=== PATIENT | female | born 1980 | race Two or more races ===

== ENCOUNTER 2020-07-13 18:38 | Emergency (ER) | payer BC ==
[~2020-07-13] VITALS: Ht 160 cm; Wt 65.4 kg
[2020-07-13 19:22] LABS: BILIRUBIN,URINE NEGATIVE (NEG); CLARITY,URINE CLEAR; NITRITE,URINE NEGATIVE (NEG); PROTEIN,URINE NEGATIVE (NEG-TRACE); UROBILINOGEN,URINE 0.2 mg/dL (0.2 mg/dL)
--- NOTE | 2020-07-13 19:25 | PHYS DOC ---
General Adult EDM: Chief Complaint: VAGINAL PROBLEM HPI: HPI: Patient is a 40 year old female who presents with on June 14 she went down to the [place] and was wearing a pad. She then began getting very itchy vaginally and she would burning when she would urinate. She states that on June 18 she went to an urgent care that gave her Bactrim antibiotic and metronidazole cream. She states the metronidazole cream helped for a little while but her symptoms came back. Patient states that they also did a urinalysis but it was all negative. She states today she has started spotting and is having very mild cramps. She states she has had some white to yellow discharge but there is no smell to it. Patient denies concern for sexually transmitted diseases. Patient denies abdominal pain, nausea, vomiting, diarrhea, fever, blood in her urine, diarrhea, constipation, back pain, dysuria symptoms. Review of Systems: Review of Systems: Constitutional: Denies fever or chills. [] Eyes: Denies change in visual acuity. [] HENT: Denies nasal congestion or sore throat. [] Respiratory: Denies cough or shortness of breath. [] Cardiovascular: Denies chest pain or edema. [] GI: +Low mid cramping abdominal pain, denies nausea, vomiting, bloody stools or diarrhea. [] : + dysuria. White and yellow discharge and itching. [] Musculoskeletal: Denies back pain or joint pain. [] Integument: Denies rash. Excoriation to external vagina and vaginal canal. [] Neurologic: Denies headache, focal weakness or sensory changes. [] Endocrine: Denies polyuria or polydipsia. [] Lymphatic: Denies swollen glands. [] Psychiatric: Denies depression or anxiety. [] Heart Score: Risk Factors: Risk Factors: DM, Current or recent (<one month) smoker, HTN, HLP, family history of CAD, obesity. Risk Scores: Score 0 - 3: 2.5% MACE over next 6 weeks - Discharge Home Score 4 - 6: 20.3% MACE over next 6 weeks - Admit for Clinical Observation Score 7 - 10: 72.7% MACE over next 6 weeks - Early Invasive Strategies Physical Exam: PE: Constitutional: Well developed, well nourished, no acute distress, non-toxic appearance. [] HENT: Normocephalic, atraumatic, bilateral external ears normal, oropharynx moist, no oral exudates, nose normal. [] Eyes: PERRLA, EOMI, conjunctiva normal, no discharge. [] Neck: Normal range of motion, no tenderness, supple, no stridor. [] Cardiovascular:Heart rate regular rhythm, no murmur [] Lungs & Thorax: Bilateral breath sounds clear to auscultation [] Abdomen: Bowel sounds normal, soft, no tenderness, no masses, no pulsatile masses. [] Skin: Warm, dry, no erythema, no rash. External vagina white discharge and tenderness or excoriation [] Back: No tenderness, no CVA tenderness. [] Extremities: No tenderness, no cyanosis, no clubbing, ROM intact, no edema. [] Neurologic: Alert and oriented X 3, normal motor function, normal sensory function, no focal deficits noted. [] Psychologic: Affect normal, judgement normal, mood normal. [] Current Patient Data: Labs: Laboratory Tests Test 07/13/20 19:11 POC Urine HCG, Qualitative Hcg negative (Negative) EKG: EKG: [] Radiology/Procedures: Radiology/Procedures: [] Course & Med Decision Making: Course & Med Decision Making Pertinent Labs and Imaging studies reviewed. (See chart for details) See HPI. Alert and oriented x4. Patient is [place]-speaking but her son is interpreting for her. Speaks in full complete sentences. Skin pink warm and dry. Ambulatory with a steady gait. Pelvic Exam: Wallpaper Scraper present Abdomen: Nontender External Genitalia: Reddened with white discharge and tender with touch Speculum: Normal vaginal mucosa tender with exam, White/ yellow cervical discharge Bimanual: No adnexal masses or tenderness, No CMT [] Patient positive for yeast and bacterial vaginosis and a urinary tract infection. She will be treated with antibiotic and antifungals. Patient follow-up with her primary care provider. Librado Disclaimer: Librado Disclaimer: This electronic medical record was generated, in whole or in part, using a voice recognition dictation system. Departure Departure Impression: Primary Impression: Yeast infection involving the vagina and surrounding area Additional Impressions: Bacterial vaginosis UTI (urinary tract infection) Qualified Codes: N39.0 - Urinary tract infection, site not specified Disposition: HOME, SELF-CARE Condition: STABLE Referrals: JOSE SÁNCHEZ Jr, MD Patient Instructions: Bacterial Vaginosis, Urinary Tract Infection, Yeast Infection of the Skin, [id number] Additional Instructions: Follow-up with a cpas. Use medications as prescribed. Drink plenty of fluids. Take medication with food and do not drink any alcohol with this medication as it can make you vomit. Scripts Miconazole Nitrate (MONISTAT 3) 24 Gm Cmb.pf.crm 1 APPFUL VG QHS for 3 Days, #24 GM 0 Refills Prov: SRINATH ELIAS APRN 07/13/20 Cephalexin (KEFLEX) 500 Mg Capsule 1 CAP PO BID for 10 Days, #20 CAP 0 Refills Prov: SRINATH ELIAS APRN 07/13/20 Metronidazole (METRONIDAZOLE) 500 Mg Tablet 1 TAB PO BID for 7 Days, #14 TAB 0 Refills Prov: SRINATH ELIAS APRN 07/13/20 Justicifation of Admission Dx: Justifications for Admission: Justification of Admission Dx: N/A SRINATH ELIAS APRN Jul 13, 2020 19:25
[2020-07-13 19:28] LABS: COLOR,URINE STRAW; SQUAMOUS EPITHELIAL CELL,UR MANY /LPF
[2020-07-13 19:29] LABS: BACTERIA,URINE MANY /HPF (0-FEW); WBC,URINE >40 /HPF (0-4)
[2020-07-13 19:30] LABS: YEAST,URINE PRESENT /HPF
[2020-07-13] MEDS ORDERED: MICO24CM5 VG (19:42)
[2020-07-13] MEDS ORDERED: CEPH-264 PO (19:42)
[2020-07-13] MEDS ORDERED: METR-34 PO (19:42)
[2020-07-13] MEDS ORDERED: cefTRIAXone IM 1 GM VIAL IM ONE (19:45)
[2020-07-13 20:16] VITALS: BP 109/80
== END 2020-07-13 20:26 | disposition home or self-care (01) ==
LOC: ER 18:38
DX: B37.3 Candidiasis of vulva and vagina (principal); N76.0 Acute vaginitis; B96.89 Other specified bacterial agents as the cause of diseases classified elsewhere; N39.0 Urinary tract infection, site not specified
CPT/HCPCS: 81001; 81025; 87086; 87491; 87591; 96372; 99284; J0696; Q0111

== ENCOUNTER 2020-07-18 09:34 | Emergency (ER) | payer BC ==
[~2020-07-18] VITALS: Ht 160 cm; Wt 63.6 kg
[~2020-07-18 09:34] MED LIST: CEPH-264 PO; METR-34 PO; MICO24CM5 VG
--- NOTE | 2020-07-18 09:57 | PHYS DOC ---
Past Medical History Past Medical History: No Pertinent History Past Surgical History: Smoking Status: Never Smoker Alcohol Use: None General Adult EDM: Chief Complaint: SKIN RASH/ABSCESS HPI: HPI: Healthy 40-year-old female who presents for evaluation of pruritus and skin burning sensation that began a couple days ago. She believes she may be allergic to one of the medications prescribed to her on Thursday when she was seen for UTI, BV, yeast infection (Keflex, Flagyl, miconazole). Also reports some mild anterior nonradiating chest pressure, and mild dyspnea, as well as some anxiety. Review of Systems: Review of Systems: Gen: No fever, chills. Eyes: No blurred vision, diplopia. ENT: No nasal congestion, sore throat. CV: No palpitations. Reports chest pressure. Resp. No SOB, cough. GI: No abd pain, N/V. : No dysuria, hematuria. Neuro: No SHETTY, dizziness, weakness. MSK: No myalgia, arthralgia, back pain. Skin: Reports pruritus. Psych: Reports anxiety. Heart Score: Risk Factors: Risk Factors: DM, Current or recent (<one month) smoker, HTN, HLP, family history of CAD, obesity. Risk Scores: Score 0 - 3: 2.5% MACE over next 6 weeks - Discharge Home Score 4 - 6: 20.3% MACE over next 6 weeks - Admit for Clinical Observation Score 7 - 10: 72.7% MACE over next 6 weeks - Early Invasive Strategies Allergies: Allergies: Allergies Coded Allergies Type Severity Reaction Last Updated Verified No Known Drug Allergies 07/13/20 No Physical Exam: PE: Gen: NAD. Well nourished. Head: NC/AT. Eyes: No scleral icterus. No conjunctival injection. ENT: MMM. Posterior OP clear. Neck: Supple. NT. CV: RRR. Peripheral pulses intact. Resp: CTAB. No W/C/R. Abd: Soft. NT. ND. MSK: No peripheral cyanosis. No edema. Neuro: A&Ox3. Strength & sensation grossly intact throughout. Skin. Warm. Dry. No urticarial rash. Psych: Appropriate mood & affect. EKG: EKG: [] Radiology/Procedures: Radiology/Procedures: [] Course & Med Decision Making: Course & Med Decision Making Pertinent Labs and Imaging studies reviewed. (See chart for details) In summary, 40-year-old female who presents for evaluation of chest pressure, diffuse pruritus, recently started on multiple medications for UTI, bacterial vaginosis, yeast infection. Urinalysis with with significant hematuria, though questionable persistent UTI. The patient's Keflex will be discontinued, and lieu of a one-time dose of fosfomycin here in ED. Also given diflucan 150 mg PO x1, with discontinuation of miconazole. Cardiac work-up was unrevealing including negative troponin and EKG showing no acute injury pattern. Possible allergic reaction, unknown agent. Will DC home with Rx prednisone, pepcid. Return precautions given. Dragon Disclaimer: Dragon Disclaimer: This electronic medical record was generated, in whole or in part, using a voice recognition dictation system. Departure Departure Impression: Primary Impression: Pruritus Additional Impression: Allergic reaction Disposition: 01 HOME, SELF-CARE Condition: STABLE Referrals: LAKESHIA TAYLOR (PCP) Patient Instructions: Drug Allergy, [id number] Additional Instructions: Please stop your previously prescribed miconazole and cephalexin. Take the prescribed steroid and pepcid. Scripts Famotidine (PEPCID) 20 Mg Tablet 20 MG PO BID, #30 TAB Prov: ARI BIRMINGHAM DO 07/18/20 Prednisone (PREDNISONE) 20 Mg Tablet 1 TAB PO DAILY, #5 TAB Prov: ARI BIRMINGHAM DO 07/18/20 Justicifation of Admission Dx: Justifications for Admission: Justification of Admission Dx: N/A ARI BIRMINGHAM DO Jul 18, 2020 09:57
[2020-07-18 10:14] LABS: BASO # 0.1 x10^3/uL (0.0-0.2); BASO % 1 % (0-3); EOS # 0.1 x10^3/uL (0.0-0.7); EOS % 2 % (0-3); HEMATOCRIT 38.3 % (36.0-47.0); HEMOGLOBIN 13.3 g/dL (12.0-15.5); LYMPH # 1.8 x10^3/uL (1.0-4.8); LYMPH % 30 % (24-48); MEAN CORPUSCULAR HEMOGLOBIN 33 pg (25-35); MEAN CORPUSCULAR HGB CONC 35 g/dL (31-37); MEAN CORPUSCULAR VOLUME 95 fL (79-100); MONO # 0.5 x10^3/uL (0.0-1.1); MONO % 9 % (0-9); NEUT # 3.4 x10^3/uL (1.8-7.7); NEUT % 58 % (31-73); PLATELET COUNT 404 x10^3/uL (140-400); RED BLOOD COUNT 4.05 x10^6/uL (3.50-5.40); RED CELL DISTRIBUTION WIDTH 12.1 % (11.5-14.5); WHITE BLOOD COUNT 5.8 x10^3/uL (4.0-11.0)
[2020-07-18 10:23] LABS: CALCIUM 9.1 mg/dL (8.5-10.1); CREATININE 0.7 mg/dL (0.6-1.0); GFR 92.7; MAGNESIUM 2.3 mg/dL (1.8-2.4); POTASSIUM 3.8 mmol/L (3.5-5.1)
[2020-07-18 10:26] LABS: COLOR,URINE RED; PH,URINE 6.5 (<5.0-8.0)
[2020-07-18] MEDS ORDERED: diazePAM 2 MG TABLET PO ONE (10:30)
[2020-07-18] MEDS ORDERED: methylPREDNISolone SOD SUCC PF 125 MG/2 ML VIAL. IV ONE (10:30)
[2020-07-18 10:38] LABS: CLARITY,URINE TURBID
[2020-07-18 10:39] LABS: RBC,URINE TNTC /HPF (0-2)
[2020-07-18 10:42] LABS: BACTERIA,URINE FEW /HPF (0-FEW); SQUAMOUS EPITHELIAL CELL,UR FEW /LPF
[2020-07-18 11:07] VITALS: BP 101/62
[2020-07-18] MEDS ORDERED: PRED20TA PO (11:09)
[2020-07-18] MEDS ORDERED: FAMO-63 PO (11:09)
[2020-07-18] MEDS ORDERED: FOSFOMYCIN TROMETHAMINE 3 GM PACKET PO ONE (11:15)
[2020-07-18] MEDS ORDERED: FLUCONAZOLE 100 MG TABLET. PO ONE (11:15)
== END 2020-07-18 11:32 | disposition home or self-care (01) ==
LOC: ER 09:34
DX: L29.2 Pruritus vulvae (principal); R07.89 Other chest pain; R20.8 Other disturbances of skin sensation; Z98.890 Other specified postprocedural states
CPT/HCPCS: 36415; 80048; 81001; 83735; 84484; 85025; 93005; 96374; 99284; J2930

== ENCOUNTER 2020-07-27 02:49 | Emergency (ER) | payer BC ==
[~2020-07-27] VITALS: Ht 160 cm; Wt 65.5 kg
[~2020-07-27 02:49] MED LIST changes: +FAMO-63 PO; +PRED20TA PO
--- NOTE | 2020-07-27 03:09 | PHYS DOC ---
Past Medical History Past Medical History: UTI Additional Past Medical Histor: BV, Yeast infection Past Surgical History: Smoking Status: Never Smoker Alcohol Use: None General Adult EDM: Chief Complaint: VAGINAL PROBLEM HPI: HPI: History was obtained from the patient. Patient is a 40-year-old female with a history of bacterial vaginosis and yeast infections who presents with chief complaint of dysuria and vaginal discharge. Daughter was uses sawmill manager at bedside per patient's request. Patient states she has had dysuria for the past 2 days. She states yesterday she began developing clear vaginal discharge with blood tinged drainage. She notes that her last menstrual period was 1 week ago and lasted for 6 days. She denies any clot passage. She does note mild suprapubic abdominal cramping. She denies any hematuria. Denies any pain with bowel movement. Denies any history of STI. Denies any history of gynecologic cancers in herself or family. Does note some mild low back pain. Denies vomiting or fever. Notes a history of in the remote past. Denies any other medical problems. Is not tried medicine at home to help with the symptoms. No other complaints. Review of Systems: Review of Systems: Constitutional: Denies fever or chills. [] Eyes: Denies change in visual acuity. [] HENT: Denies nasal congestion or sore throat. [] Respiratory: Denies cough or shortness of breath. [] Cardiovascular: Denies chest pain or edema. [] GI: Positive for abdominal pain : Positive for dysuria and vaginal discharge Musculoskeletal: Denies back pain or joint pain. [] Integument: Denies rash. [] Neurologic: Denies headache, focal weakness or sensory changes. [] Endocrine: Denies polyuria or polydipsia. [] Lymphatic: Denies swollen glands. [] Psychiatric: Denies depression or anxiety. [] Heart Score: Risk Factors: Risk Factors: DM, Current or recent (<one month) smoker, HTN, HLP, family history of CAD, obesity. Risk Scores: Score 0 - 3: 2.5% MACE over next 6 weeks - Discharge Home Score 4 - 6: 20.3% MACE over next 6 weeks - Admit for Clinical Observation Score 7 - 10: 72.7% MACE over next 6 weeks - Early Invasive Strategies Allergies: Allergies: Allergies Coded Allergies Type Severity Reaction Last Updated Verified No Known Drug Allergies 07/13/20 No Physical Exam: PE: Constitutional: Well developed, well nourished, no acute distress, non-toxic appearance. [] HENT: Normocephalic, atraumatic, bilateral external ears normal, oropharynx moist, no oral exudates, nose normal. [] Eyes: PERRLA, EOMI, conjunctiva normal, no discharge. [] Neck: Normal range of motion, no tenderness, supple, no stridor. [] Cardiovascular:Heart rate regular rhythm, no murmur [] Lungs & Thorax: Bilateral breath sounds clear to auscultation [] Abdomen: soft, no tenderness, no masses, no pulsatile masses. [] Pelvic: Chaperoned by SEAMUS Alcala. No purulent discharge appreciated. Negative CMT. No adnexal tenderness. No bleeding or clots visualized. Skin: Warm, dry, no erythema, no rash. [] Back: No tenderness, no CVA tenderness. [] Extremities: No tenderness, no cyanosis, no clubbing, ROM intact, no edema. [] Neurologic: Alert and oriented X 3, normal motor function, normal sensory function, no focal deficits noted. [] Psychologic: Affect normal, judgement normal, mood normal. [] Current Patient Data: Labs: Laboratory Tests Test 07/27/20 03:02 POC Urine HCG, Qualitative Hcg negative (Negative) Vital Signs: Vital Signs Date Time Temp Pulse Resp B/P (MAP) Pulse Ox O2 Delivery O2 Flow Rate FiO2 07/27/20 04:45 61 18 115/67 (83) 97 Room Air 07/27/20 03:30 61 18 121/56 (77) 98 Room Air 07/27/20 02:55 98.2 75 20 127/91 (103) 99 Room Air 98.2 07/27/20 02:55 75 20 127/91 (103) 99 Room Air EKG: EKG: [] Radiology/Procedures: Radiology/Procedures: [facility] [address] [place] [address] IMAGING REPORT Signed PATIENT: TANIKA SMITHCOUNT: [id number] : 1980 LOCATION: ER AGE: 40 SEX: F EXAM STATUS: REG ER ORD. PHYSICIAN: ELAINE ANGLIN DO REASON: lower abdominal pain PROCEDURE: CT ABD PELV W/ IV CONTRST ONLY CT abdomen and pelvis with contrast: Reason for examination: Low abdominal pain. Helical images were obtained through the abdomen pelvis with intravenous administration of 75 cc Omnipaque 300. Reconstruction was performed in sagittal and coronal planes. Exposure: One or more of the following individualized dose reduction techniques were utilized for this examination: 1. Automated exposure control 2. Adjustment of the mA and/or kV according to patient size 3. Use of iterative reconstruction technique. The lung bases are clear. The heart size is normal. No pericardial effusion is seen. Bilateral breast implants are present and appear to be intact. No abnormalities of seen at the gallbladder, liver, spleen, adrenal glands or pancreas. The abdominal aorta and inferior vena cava show no acute abnormalities. No abnormality seen at the appendix. The colon shows no diverticulosis, diverticulitis or colitis. The small intestinal tract shows no abnormal dilatation, wall thickening or evidence of obstruction. The stomach is not distended and shows no abnormal wall thickening. The kidneys show no renal masses, renal calculi, hydronephrosis or evidence of obstructive uropathy. No abnormality seen at the bladder, uterus or ovaries. No free fluid or free air seen in the abdomen or pelvis. No acute bony abnormalities are seen. IMPRESSION: No acute abnormality seen in the abdomen or pelvis. Electronically signed by: Asif Wesley MD (07/27/2020 5:09 AM) [facility] DICTATED and SIGNED BY: ASIF WESLEY MD DATE: 07/27/20 0509 [facility] [address] [address] IMAGING REPORT Signed PATIENT: TANIKA SMITHCOUNT: [id number] : 1980 LOCATION: ER AGE: 40 SEX: F EXAM STATUS: REG ER ORD. PHYSICIAN: ELAINE ANGLIN DO REASON: lower abdominal pain. VAGINAL IRRITATION. W SOME BLOODY DISCHARGE PROCEDURE: PELVIS W/TV Pelvic ultrasound, transabdominal and transvaginal: Reason for examination: Low abdominal pain and vaginal irritation with some bloody discharge. Transabdominal transvaginal ultrasound examination of the pelvis was performed. No gross abnormality seen at the bladder. The uterus is normal in size at 8.7 x 3.9 x 5.5 cm in greatest dimension without gross endometrial thickening at 3.9 mm. The right ovary measures 3.4 x 2.2 x 1.8 cm in greatest dimension and shows normal vascular flow with no mass. Left ovary measures 2.3 x 3.3 x 2.1 cm in greatest dimension with good vascular flow and no mass. No free fluid is evident. Transvaginally, the uterus shows no focal mass. Endometrium is not thickened at 6.7 mm. Nabothian cysts is present at the cervix. Right ovary shows several follicles. Left ovary shows multiple follicles with a dominant 1.4 cm follicle/cyst. There is good vascular flow bilaterally in the ovaries. No other adnexal masses are seen. There is a small amount of free fluid in the pelvic cul-de-sac. IMPRESSION: Multiple follicles on the ovaries bilaterally with a dominant 1.4 cm follicle in the left ovary. Small amount of free fluid in pelvic cul-de-sac which could be physiologic. No other focal abnormality seen in the pelvis. Electronically signed by: Asif Wesley MD (07/27/2020 4:44 AM) [facility] DICTATED and SIGNED BY: ASIF WESLEY MD DATE: 07/27/20 0444 [] Course & Med Decision Making: Course & Med Decision Making Pertinent Labs and Imaging studies reviewed. (See chart for details) [] Patient is a 40-year-old female who presents with chief complaint of lower abdominal discomfort associated with clear vaginal discharge. Initial vital signs unremarkable. Exam overall unremarkable. Pelvic exam was performed and reveals no signs of purulent discharge. Negative CMT and no bleeding visualized. Urinalysis without evidence of infection. Wet prep negative for clue cells. Chlamydia and gonorrhea cultures pending. I do feel is reasonable to defer antibiotics based on her benign pelvic exam until results return. I did discuss results of swabs and urinalysis with the patient. I did offer to obtain further laboratory testing and imaging giving their abdominal pain although overall I do have low suspicion for emergent etiology. Patient did request further testing. Ultrasound does reveal multiple ovarian follicles. CT imaging grossly unremarkable. Laboratory analysis unremarkable. Patient symptoms could be related to ovarian follicles versus cysts that she is experiencing. No signs of acute infection at this time. Low suspicion for acute surgical emergency at this time. Repeat examination her abdomen remains benign. Her symptoms were well controlled. She has tolerated p.o. Vital signs been stable. I do feel she is appropriate for discharge home. She states she does have follow-up with her DENTAL LABORATORY TECHNICIAN in the next month. Encouraged her to follow-up with her primary care physician in the next 2 to 3 days. Return precautions discussed and understood. Patient is stable for discharge home. Dragon Disclaimer: Dragon Disclaimer: This electronic medical record was generated, in whole or in part, using a voice recognition dictation system. Departure Departure Impression: Primary Impression: Abdominal pain Qualified Codes: R10.30 - Lower abdominal pain, unspecified Additional Impression: Vaginal discharge Disposition: HOME, SELF-CARE Condition: STABLE Referrals: LAKESHIA TAYLOR (PCP) Additional Instructions: Discharge Abdominal Pain Re-Check Precautions: I'm unsure of the specific cause of your abdominal pain. However, at this point I feel that you are low risk for a life threatening emergency and that discharge from the Emergency Department is safe. There is a very small possibility that you are just too early in your clinical course for our physical exam/labs/imaging to ascertain whether or not you have an emergent condition that could potentially cause permanent disability or be life threatening. As such, it is very important that you follow up with your primary doctor or return to the Emergency Department in 12-24 hours for re-assessment and further evaluation if clinically indicated. If you develop new or worsening symptoms then you should return to the Emergency Department immediately. Home Care Instructions: Abdominal Pain Many things may cause abdominal pain. Your ER visit might not show the exact reason you are having pain. In some cases, additional time is needed to determine if the cause is serious. Therefore you may be told to go home and watch for any changes or worsening in your condition. Before that, we may not know if you need more testing, or if hospitalization or surgery is necessary. If its not something serious, the pain may go away without treatment or get better with simple things like avoiding certain foods or medications. In the ER, your doctor asks you questions, examines you and in some cases, may order tests. These help doctors decide if the pain is from something serious. Tests are not always done and may not provide a definite answer. There can still be a problem, even with normal test results. Abdominal pain may be caused by something serious (like appendicitis), which is not obvious right away. Because of this, another checkup is needed to make sure you are OK. It is VERY IMPORTANT to follow up for a repeat exam, especially if you have any symptoms that are not going away or are getting worse. We recommend that you RETURN TO THE EMERGENCY ROOM IN 8-12 HOURS to be rechecked. If you cannot, you may follow up with your primary care doctor or clinic. It is important that you follow all of the instructions below. RETURN TO THE EMERGENCY ROOM IMMEDIATELY IF: The pain does not go away or gets worse. You have a fever. You keep throwing up and cannot keep anything down. You pass bloody or black stools. You develop new symptoms. HOME CARE INSTRUCTIONS Come back to the ER (or see your doctor) in 8-12 hours. DO NOT take laxatives unless directed by your doctor. Avoid the use of alcohol Take pain medicine only as directed by your doctor. Only take [id number] or prescription medicine as directed by your doctor. Try a clear liquid diet (broth, tea, jello, water) for the next 12-24 hours. Slowly move to a bland diet as tolerated. Do not eat greasy, fatty or spicy foods. Once you start getting better, go back to a normal, healthy diet, slowly over a few days. DISCHARGE PT INSTRUCTIONS: YOU HAVE BEEN EVALUATED FOR ABDOMINAL PAIN. HOWEVER, WE ARE UNABLE TO PROVIDE A DEFINITE CAUSE OF YOUR SYMPTOMS. EVEN THOUGH YOUR TESTS MAY HAVE BEEN NORMAL, YOU STILL COULD HAVE A SERIOUS CAUSE FOR YOUR ABDOMINAL PAIN, INCLUDING APPENDICITIS. THE BEST TEST TO DETERMINE IF YOU HAVE A SERIOUS CAUSE IS RE-EXAMINATION OVER TIME. WE USED TO ADMIT PATIENTS TO THE HOSPITAL FOR THIS, BUT CAN NOW ALLOW YOU TO GO HOME, & RETURN TO OUR ER THE NEXT DAY FOR RE- EXAMINATION. THUS, WE WOULD LIKE YOU TO RETURN TO OUR ER TOMORROW FOR YOUR RE- EVALUATION. (IF YOUR SYMPTOMS HAVE GONE AWAY, THEN YOU DO NOT NEED TO RETURN.) IF YOUR SYMPTOMS GET WORSE BETWEEN NOW & THEN, YOU SHOULD RETURN IMMEDIATELY & NOT WAIT UNTIL TOMORROW. SYMPTOMS TO LOOK FOR WORSENING PAIN, HIGH FEVER, PERSISTENT VOMITING [NOT CONTROLLED BY MEDICINE], AND/OR OVERALL WORSENING OF YOUR CONDITION. Scripts Ondansetron Hcl (ZOFRAN) 4 Mg Tablet 4 MG PO PRN TID PRN for NAUSEA, #15 nausea/vomiting Prov: ELAINE ANGLIN DO 07/27/20 Acetaminophen (Tylenol) 325 Mg Capsule 1000 MG PO TID PRN PRN for PAIN for 5 Days, #15 CAP Prov: ELAINE ANGLIN DO 07/27/20 ELAINE ANGLIN DO Jul 27, 2020 03:09
[2020-07-27] MEDS ORDERED: ACETAMINOPHEN 500 MG TABLET PO ONE (03:15)
[2020-07-27 03:22] LABS: BILIRUBIN,URINE NEGATIVE (NEG); CLARITY,URINE CLEAR; COLOR,URINE YELLOW; NITRITE,URINE NEGATIVE (NEG); PROTEIN,URINE NEGATIVE (NEG-TRACE); UROBILINOGEN,URINE 0.2 mg/dL (0.2 mg/dL)
[2020-07-27] MEDS ORDERED: KETOROLAC 30 MG/ML VIAL. IM ONE (03:30)
[2020-07-27 03:33] LABS: BACTERIA,URINE 0 /HPF (0-FEW); RBC,URINE 0 /HPF (0-2); WBC,URINE OCC /HPF (0-4)
[2020-07-27 04:21] LABS: BASO # 0.1 x10^3/uL (0.0-0.2); BASO % 1 % (0-3); EOS # 0.2 x10^3/uL (0.0-0.7); EOS % 2 % (0-3); HEMATOCRIT 35.3 % (36.0-47.0); HEMOGLOBIN 12.6 g/dL (12.0-15.5); LYMPH # 1.9 x10^3/uL (1.0-4.8); LYMPH % 24 % (24-48); MEAN CORPUSCULAR HEMOGLOBIN 34 pg (25-35); MEAN CORPUSCULAR HGB CONC 36 g/dL (31-37); MEAN CORPUSCULAR VOLUME 95 fL (79-100); MONO # 0.6 x10^3/uL (0.0-1.1); MONO % 7 % (0-9); NEUT # 5.4 x10^3/uL (1.8-7.7); NEUT % 66 % (31-73); PLATELET COUNT 366 x10^3/uL (140-400); RED BLOOD COUNT 3.73 x10^6/uL (3.50-5.40); RED CELL DISTRIBUTION WIDTH 12.4 % (11.5-14.5); WHITE BLOOD COUNT 8.2 x10^3/uL (4.0-11.0)
[2020-07-27 04:29] LABS: CALCIUM 8.4 mg/dL (8.5-10.1); CREATININE 0.7 mg/dL (0.6-1.0); GFR 92.7; POTASSIUM 3.9 mmol/L (3.5-5.1)
[2020-07-27 04:35] LABS: ALBUMIN 3.5 g/dL (3.4-5.0); ALBUMIN/GLOBULIN RATIO 0.9 (1.0-1.7); TOTAL BILIRUBIN 0.3 mg/dL (0.2-1.0); TOTAL PROTEIN 7.2 g/dL (6.4-8.2)
[2020-07-27] MEDS ORDERED: IOHEXOL 300 MG/ML 100ML VIAL. IV ONE (04:45)
[2020-07-27] MEDS ORDERED: CONTRAST GIVEN. MC PRN (04:45)
--- NOTE | 2020-07-27 04:46 | RAD ---
Pelvic ultrasound, transabdominal and transvaginal: Reason for examination: Low abdominal pain and vaginal irritation with some bloody discharge. Transabdominal transvaginal ultrasound examination of the pelvis was performed. No gross abnormality seen at the bladder. The uterus is normal in size at 8.7 x 3.9 x 5.5 cm in greatest dimension without gross endometrial thickening at 3.9 mm. The right ovary measures 3.4 x 2.2 x 1.8 cm in greatest dimension and shows normal vascular flow with no mass. Left ovary measures 2.3 x 3.3 x 2.1 cm in greatest dimension with good vascular flow and no mass. No free fluid is evident. Transvaginally, the uterus shows no focal mass. Endometrium is not thickened at 6.7 mm. Nabothian cysts is present at the cervix. Right ovary shows several follicles. Left ovary shows multiple follicles with a dominant 1.4 cm follicle/cyst. There is good vascular flow bilaterally in the ovaries. No other adnexal masses are seen. There is a small amount of free fluid in the pelvic cul-de-sac. IMPRESSION: Multiple follicles on the ovaries bilaterally with a dominant 1.4 cm follicle in the left ovary. Small amount of free fluid in pelvic cul-de-sac which could be physiologic. No other focal abnormality seen in the pelvis. Electronically signed by: Chelle Linda MD (07/27/2020 4:44 AM) [facility]
[2020-07-27] MEDS ORDERED: ACET325C6 PO (05:01)
[2020-07-27] MEDS ORDERED: ONDA4TAB7 PO (05:01)
--- NOTE | 2020-07-27 05:12 | RAD ---
CT abdomen and pelvis with contrast: Reason for examination: Low abdominal pain. Helical images were obtained through the abdomen pelvis with intravenous administration of 75 cc Omnipaque 300. Reconstruction was performed in sagittal and coronal planes. Exposure: One or more of the following individualized dose reduction techniques were utilized for this examination: 1. Automated exposure control 2. Adjustment of the mA and/or kV according to patient size 3. Use of iterative reconstruction technique. The lung bases are clear. The heart size is normal. No pericardial effusion is seen. Bilateral breast implants are present and appear to be intact. No abnormalities of seen at the gallbladder, liver, spleen, adrenal glands or pancreas. The abdominal aorta and inferior vena cava show no acute abnormalities. No abnormality seen at the appendix. The colon shows no diverticulosis, diverticulitis or colitis. The small intestinal tract shows no abnormal dilatation, wall thickening or evidence of obstruction. The stomach is not distended and shows no abnormal wall thickening. The kidneys show no renal masses, renal calculi, hydronephrosis or evidence of obstructive uropathy. No abnormality seen at the bladder, uterus or ovaries. No free fluid or free air seen in the abdomen or pelvis. No acute bony abnormalities are seen. IMPRESSION: No acute abnormality seen in the abdomen or pelvis. Electronically signed by: Chelle Linda MD (07/27/2020 5:09 AM) DANIELE
[2020-07-27 05:42] VITALS: BP 100/50
== END 2020-07-27 05:42 | disposition home or self-care (01) ==
LOC: ER 02:49
DX: R10.30 Lower abdominal pain, unspecified (principal); N89.8 Other specified noninflammatory disorders of vagina; R30.0 Dysuria; M54.5 Low back pain; Z87.440 Personal history of urinary (tract) infections
CPT/HCPCS: 36415; 74177; 76830; 76856; 80053; 81001; 81025; 83690; 85025; 87491; 87591; 96372; 99285; J1885; Q0111; Q9967

== ENCOUNTER 2020-11-10 03:17 | Emergency (ER) | payer BC ==
[~2020-11-10] VITALS: Ht 165.1 cm; Wt 66.4 kg
[~2020-11-10 03:17] MED LIST changes: +ACET325C6 PO; +ONDA4TAB7 PO
[2020-11-10 03:19] VITALS: BP 161/70
--- NOTE | 2020-11-10 03:21 | PHYS DOC ---
Past Medical History Past Medical History: UTI Additional Past Medical Histor: BV, Yeast infection Past Surgical History: Smoking Status: Never Smoker Alcohol Use: None General Adult EDM: Chief Complaint: VAGINAL PROBLEM HPI: HPI: Patient is a 40-year-old female who is Georgian-speaking presenting with her son who is serving as forest products gatherer for dysuria. Onset of symptoms was 3 days ago. Nothing known makes better or worse. Patient reports dysuria and pelvic cramping whenever she attempts to urinate. States she was recently fully examined for vaginal discharge and pain with labs, pelvic exam and ultrasonography and ultimately found to have herpes outbreak for which she has been taking acyclovir for approximately 1 week. Denies COVID-19 contact, fever, chest pain, shortness of breath, flank pain, changes in bowel function. Review of Systems: Review of Systems: Fourteen body systems of review of systems have been reviewed. See HPI for pertinent positives and negative responses, other [place] all other systems are negative, non-pertinent or non-contributory Heart Score: HEART Score for Chest Pain: HEART Score for Chest Pain Response (Comments) Value History Slighlty/Non-Suspicious 0 Age < 45 0 Risk Factors No Risk Factors 0 Total 0 Risk Factors: Risk Factors: DM, Current or recent (<one month) smoker, HTN, HLP, family history of CAD, obesity. Risk Scores: Score 0 - 3: 2.5% MACE over next 6 weeks - Discharge Home Score 4 - 6: 20.3% MACE over next 6 weeks - Admit for Clinical Observation Score 7 - 10: 72.7% MACE over next 6 weeks - Early Invasive Strategies Allergies: Allergies: Allergies Coded Allergies Type Severity Reaction Last Updated Verified No Known Drug Allergies 07/13/20 No Physical Exam: PE: Constitutional: Well developed, well nourished, no acute distress, non-toxic appearance. HENT: Normocephalic, atraumatic, bilateral external ears normal, oropharynx moist, no oral exudates, nose normal. Eyes: PERRLA, EOMI, conjunctiva normal, no discharge. Neck: Normal range of motion, no tenderness, supple, no stridor. Cardiovascular: Heart rate regular, sinus rhythm, no murmurs rubs or gallops Lungs & Thorax: Bilateral breath sounds clear to auscultation Abdomen: Bowel sounds normal, soft, mild suprapubic tenderness, no masses, no pulsatile masses. Nonsurgical abdomen, no peritoneal signs : Deferred Skin: Warm, dry, no erythema, no rash. Back: No tenderness, no CVA tenderness. Extremities: No tenderness, no cyanosis, no clubbing, ROM intact, no edema. Neurologic: Alert and oriented X 3, grossly normal motor & sensory function, no focal deficits noted. Psychologic: Anxious affect and mood Current Patient Data: Vital Signs: Vital Signs Date Time Temp Pulse Resp B/P (MAP) Pulse Ox O2 Delivery O2 Flow Rate FiO2 11/10/20 03:19 98.1 71 18 161/70 (100) 100 Room Air 98.1 EKG: EKG: [] Radiology/Procedures: Radiology/Procedures: [] Course & Med Decision Making: Course & Med Decision Making Discussed with the patient all findings and diagnostic testing. I discussed most likely diagnosis of UTI. I stressed need for close outpatient follow-up to review today's ER visit. Strict return precautions were also discussed at length with good understanding by patient and son. Patient and son voiced understanding and agreement with the plan. Patient and son knows to come back for repeat evaluation if concerning signs or symptoms present prior to outpatient follow-up. Hemodynamically stable, ambulatory and well-appearing at time of disposition. [employer] Disclaimer: [employer] Disclaimer: This electronic medical record was generated, in whole or in part, using a voice recognition dictation system. Departure Departure Impression: Primary Impression: UTI (urinary tract infection) Disposition: 01 DC HOME SELF CARE/HOMELESS Condition: GOOD Referrals: LAKESHIA TAYLOR (PCP) Patient Instructions: Urinary Tract Infection Additional Instructions: You were seen for a urinary tract infection. Please continue to take the antibiotics as prescribed. You should return to the ED if you develop worsening pain, fever, flank pain, or any other new or concerning symptoms. Follow up with primary care for further management if ongoing symptoms. TRENT TUCKER DO Nov 10, 2020 03:21
[2020-11-10 03:38] LABS: BILIRUBIN,URINE NEGATIVE (NEG); CLARITY,URINE CLEAR; COLOR,URINE YELLOW; NITRITE,URINE NEGATIVE (NEG); PROTEIN,URINE NEGATIVE (NEG-TRACE); UROBILINOGEN,URINE 0.2 mg/dL (0.2 mg/dL)
[2020-11-10 03:46] LABS: BACTERIA,URINE FEW /HPF (0-FEW); RBC,URINE RARE /HPF (0-2); YEAST,URINE PRESENT /HPF
[2020-11-10] MEDS ORDERED: NITR100C62 PO (04:13)
[2020-11-10] MEDS ORDERED: NITROFURANTOIN MONOHYD/M-CRYST 100 MG CAPSULE. PO ONE (04:30)
== END 2020-11-10 04:31 | disposition home or self-care (01) ==
LOC: ER 03:17
DX: N39.0 Urinary tract infection, site not specified (principal); R30.0 Dysuria; R10.2 Pelvic and perineal pain; Z98.890 Other specified postprocedural states
CPT/HCPCS: 81001; 81025; 87086; 99283

== ENCOUNTER 2020-11-17 16:10 | Emergency (ER) | payer BC ==
[~2020-11-17] VITALS: Ht 152.4 cm; Wt 65.4 kg
[~2020-11-17 16:10] MED LIST changes: +NITR100C62 PO
[2020-11-17] MEDS ORDERED: IV NORMAL SALINE 1000ML BAG 1,000 ML IV ONE (17:00)
[2020-11-17 17:28] LABS: BASO # 0.1 x10^3/uL (0.0-0.2); BASO % 1 % (0-3); EOS % 0 % (0-3); HEMATOCRIT 37.8 % (36.0-47.0); HEMOGLOBIN 13.2 g/dL (12.0-15.5); LYMPH # 1.4 x10^3/uL (1.0-4.8); LYMPH % 14 % (24-48); MEAN CORPUSCULAR HEMOGLOBIN 34 pg (25-35); MEAN CORPUSCULAR HGB CONC 35 g/dL (31-37); MEAN CORPUSCULAR VOLUME 97 fL (79-100); MONO # 0.5 x10^3/uL (0.0-1.1); MONO % 5 % (0-9); NEUT # 8.2 x10^3/uL (1.8-7.7); NEUT % 81 % (31-73); PLATELET COUNT 396 x10^3/uL (140-400); RED BLOOD COUNT 3.92 x10^6/uL (3.50-5.40); RED CELL DISTRIBUTION WIDTH 12.7 % (11.5-14.5); WHITE BLOOD COUNT 10.1 x10^3/uL (4.0-11.0)
[2020-11-17 17:29] LABS: BILIRUBIN,URINE NEGATIVE (NEG); CLARITY,URINE CLEAR; COLOR,URINE YELLOW; NITRITE,URINE NEGATIVE (NEG); PH,URINE 6.5 (<5.0-8.0); PROTEIN,URINE NEGATIVE (NEG-TRACE); UROBILINOGEN,URINE 0.2 mg/dL (0.2 mg/dL)
[2020-11-17 17:37] LABS: CALCIUM 9.6 mg/dL (8.5-10.1); CREATININE 0.7 mg/dL (0.6-1.0); GFR 92.7
[2020-11-17 17:37] LABS: BARBITURATES NEG (NEG); BENZODIAZEPINES NEG (NEG); CANNABINOIDS NEG (NEG); COCAINE NEG (NEG); METHADONE NEG (NEG); OPIATES NEG (NEG); PHENCYCLIDINE NEG (NEG)
[2020-11-17 17:38] LABS: AMPHETAMINE/METHAMPHETAMINE NEG (NEG); BACTERIA,URINE MODERATE /HPF (0-FEW); RBC,URINE OCC /HPF (0-2)
[2020-11-17 17:39] LABS: YEAST,URINE PRESENT /HPF
[2020-11-17] MEDS ORDERED: FLUC150T PO (18:48)
[2020-11-17] MEDS ORDERED: CEPH500C PO (18:48)
[2020-11-17] MEDS ORDERED: LORA0.5T96 PO (18:48)
--- NOTE | 2020-11-17 18:50 | ED.ADGEN ---
Past Medical History Past Medical History: Anxiety, Depression, UTI Additional Past Medical Histor: BV, Yeast infection Past Surgical History: , Other Additional Past Surgical Histo: BREAST IMPLANTS Smoking Status: Never Smoker Alcohol Use: None General Adult EDM: Chief Complaint: ANXIETY/PANIC ATTACK HPI: HPI: Patient is a 40 year old female, accompanied by her who presents to the emergency department with reports of anxiety. Patient states fernando cain has not not been able to sleep soundly for several months. At this time she states she is having tingling in her face, head, tongue, and both of her upper extremities. She reports that these episodes have happened frequently and at times her hands lock up. She denies any abdominal pain, nausea, vomiting, diarrhea, cough, or palpitations. She states at this time her chest feels tight and she feels like she cannot breathe but she denies any chest pain or wheezing. Patient denies any vision changes, weakness. She reports that her doctor started her on Zoloft and trazodone yesterday but it is not helping her anxiousness. She currently rates her discomfort 8 out of 10 on the pain scale, she denies any alleviating factors. Review of Systems: Review of Systems: Complete ROS is negative unless otherwise noted in HPI. Current Medications: Current Medications Medications (Trade) Dose Ordered Sig/Frida Start Time Stop Time Status Last Admin Dose Admin Lorazepam (Ativan Inj) 1 mg 1X ONCE 11/17/20 17:00 11/17/20 17:01 DC 11/17/20 17:25 1 MG Sodium Chloride 1,000 ml @ 1,000 mls/hr 1X ONCE 11/17/20 17:00 11/17/20 17:59 DC 11/17/20 17:25 1,000 MLS/HR Allergies: Allergies: Allergies Coded Allergies Type Severity Reaction Last Updated Verified No Known Drug Allergies 07/13/20 No Physical Exam: PE: See Above Constitutional: Well developed, well nourished, moderate distress, nontoxic appearance, anxious HENT: Normocephalic, atraumatic, bilateral external ears normal, nose normal. [] Eyes: PERRLA, EOMI, conjunctiva normal, no discharge. [] Neck: Normal range of motion, no stridor. [] Cardiovascular:Heart rate regular rhythm Lungs & Thorax: Respirations even and unlabored, no retractions, no respiratory distress Abdomen: soft, no tenderness Skin: Warm, dry, no erythema, no rash. [] Extremities: No cyanosis, ROM intact, no edema. [] Neurologic: Alert and oriented X 3, motor intact, sensation intact, no focal deficits noted. [] Psychologic: Affect anxious, judgement normal, mood normal. [] Current Patient Data: Labs: Laboratory Tests Test 11/17/20 16:57 11/17/20 17:13 Urine Collection Type Unknown Urine Color Yellow Urine Clarity Clear Urine pH 6.5 (<5.0-8.0) Urine Specific [place] <=1.005 (1.000-1.030) Urine Protein Negative mg/dL (NEG-TRACE) Urine Glucose (UA) Negative mg/dL (NEG) Urine Ketones (Stick) Negative mg/dL (NEG) Urine Blood Large (NEG) Urine Nitrite Negative (NEG) Urine Bilirubin Negative (NEG) Urine Urobilinogen Dipstick 0.2 mg/dL (0.2 mg/dL) Urine Leukocyte Esterase Moderate (NEG) Urine RBC Occ /HPF (0-2) Urine WBC 11-20 /HPF (0-4) Urine Squamous Epithelial Cells Many /LPF Urine Bacteria Moderate /HPF (0-FEW) Urine Yeast Present /HPF Urine Opiates Screen Neg (NEG) Urine Methadone Screen Neg (NEG) Urine Barbiturates Neg (NEG) Urine Phencyclidine Screen Neg (NEG) Urine Amphetamine/Methamphetamine Neg (NEG) Urine Benzodiazepines Screen Neg (NEG) Urine Cocaine Screen Neg (NEG) Urine Cannabinoids Screen Neg (NEG) Urine Ethyl Alcohol Neg (NEG) White Blood Count 10.1 x10^3/uL (4.0-11.0) Red Blood Count 3.92 x10^6/uL (3.50-5.40) Hemoglobin 13.2 g/dL (12.0-15.5) Hematocrit 37.8 % (36.0-47.0) Mean Corpuscular Volume 97 fL (79-100) Mean Corpuscular Hemoglobin 34 pg (25-35) Mean Corpuscular Hemoglobin Concent 35 g/dL (31-37) Red Cell Distribution Width 12.7 % (11.5-14.5) Platelet Count 396 x10^3/uL (140-400) Neutrophils (%) (Auto) 81 % (31-73) H Lymphocytes (%) (Auto) 14 % (24-48) L Monocytes (%) (Auto) 5 % (0-9) Eosinophils (%) (Auto) 0 % (0-3) Basophils (%) (Auto) 1 % (0-3) Neutrophils # (Auto) 8.2 x10^3/uL (1.8-7.7) H Lymphocytes # (Auto) 1.4 x10^3/uL (1.0-4.8) Monocytes # (Auto) 0.5 x10^3/uL (0.0-1.1) Eosinophils # (Auto) 0.0 x10^3/uL (0.0-0.7) Basophils # (Auto) 0.1 x10^3/uL (0.0-0.2) Sodium Level 139 mmol/L (136-145) Potassium Level 4.0 mmol/L (3.5-5.1) Chloride Level 103 mmol/L (98-107) Carbon Dioxide Level 24 mmol/L (21-32) Anion Gap 12 (6-14) Blood Urea Nitrogen 8 mg/dL (7-20) Creatinine 0.7 mg/dL (0.6-1.0) Estimated GFR (Cockcroft-Gault) 92.7 Glucose Level 107 mg/dL (70-99) H Calcium Level 9.6 mg/dL (8.5-10.1) Laboratory Tests 11/17/20 17:13 Laboratory Tests 11/17/20 17:13 Vital Signs: Vital Signs Date Time Temp Pulse Resp B/P (MAP) Pulse Ox O2 Delivery O2 Flow Rate FiO2 11/17/20 19:40 64 16 136/78 (97) 98 Room Air 11/17/20 16:11 98.6 98.6 EKG: EK-sinus rhythm rate 65, no STEMI, read by Dr. Rivera[] Heart Score: Risk Factors: Risk Factors: DM, Current or recent (<one month) smoker, HTN, HLP, family hi story of CAD, obesity. Risk Scores: Score 0 - 3: 2.5% MACE over next 6 weeks - Discharge Home Score 4 - 6: 20.3% MACE over next 6 weeks - Admit for Clinical Observation Score 7 - 10: 72.7% MACE over next 6 weeks - Early Invasive Strategies Radiology/Procedures: Radiology/Procedures: [] Course & Med Decision Making: Course & Med Decision Making Pertinent Labs and Imaging studies reviewed. (See chart for details) 1840- patient reports feeling much better after the IV medications. I informed patient of the urinary tract infection. Will prescribe some Ativan for patient to take for severe anxiety. I encouraged patient to continue taking the anxiety medication that was prescribed by her primary care doctor. I encouraged her to follow-up with her primary care doctor next week, return to the ER if symptoms worsen. Also inform the patient of the urinary tract infection and yeast in her urine. Prescriptions written for Keflex and Diflucan. Patient and her verbalized an understanding of home care, medications, follow-up, and return to ED instructions and were in agreement with the plan of care. [] Dragon Disclaimer: Dragon Disclaimer: This electronic medical record was generated, in whole or in part, using a voice recognition dictation system. Departure Departure Impression: Primary Impression: Anxiety attack Additional Impression: UTI (urinary tract infection) Disposition: 01 DC HOME SELF CARE/HOMELESS Condition: STABLE Referrals: LAILA LYNN-BC (PCP) Patient Instructions: Anxiety and Panic Attacks, [id number], Urinary Tract Infection, [id number] Additional Instructions: Fill the prescription and take it as directed. Continue taking the medications that were prescribed by your primary care doctor for your anxiety. Avoid bladder irritants such as caffeine, carbonation, and spicy foods. Increase clear fluids. Follow up with your primary care doctor next week, return to the ER if symptoms worsen or fever develops. Scripts Lorazepam (ATIVAN) 0.5 Mg Tablet 0.5 MG PO TID PRN for ANXIETY / AGITATION for 4 Days, #12 TAB 0 Refills Prov: YAMILET ANN NURSING ASSISTANTS TEACHER 11/17/20 Fluconazole (DIFLUCAN) 150 Mg Tablet 1 TAB PO ONCE PRN for SEE COMMENTS for 1 Day, #1 TAB 1 Refill prn Yeast infection. May repeat medication in 72 hours if symptoms persist. Prov: YAMILET ANN NURSING ASSISTANTS TEACHER 11/17/20 Cephalexin (CEPHALEXIN) 500 Mg Capsule 1 CAP PO BID for 10 Days, #20 CAP Prov: YAMILET ANN NURSING ASSISTANTS TEACHER 11/17/20 Problem Qualifiers Additional Impression: UTI (urinary tract infection) Urinary tract infection type: site unspecified Hematuria presence: without hematuria Qualified Codes: N39.0 - Urinary tract infection, site not specified YAMILET ANN NURSING ASSISTANTS TEACHER Nov 17, 2020 18:50
[2020-11-17 19:40] VITALS: BP 136/78
--- NOTE | 2020-11-19 10:13 | EKG ---
[facility] [address] [place] [address] Test Date: 2020-11-17 Test Time: 16:19:09 Pat Name: MAURICIO SMITH Department: Room: Gender: F [employer] Lecturer: : 1980 Requested By: YAMILET ANN Order Number: [id number] Reading MD: Measurements Intervals [place] Rate: 65 P: 37 CA: 126 QRS: 73 QRSD: 80 T: 24 QT: 424 QTc: 442 Interpretive Statements SINUS RHYTHM NO SPECIFIC ECG ABNORMALITIES RI6.01 No previous ECG available for comparison
== END 2020-11-17 19:45 | disposition home or self-care (01) ==
LOC: ER 16:10
DX: F41.9 Anxiety disorder, unspecified (principal); N39.0 Urinary tract infection, site not specified; F32.9 Major depressive disorder, single episode, unspecified
CPT/HCPCS: 36415; 80048; 80307; 81001; 85025; 87086; 96361; 96374; 99285; J2060; J7030; 93005

== ENCOUNTER 2020-11-19 15:24 | Emergency (ER) | payer BC ==
[~2020-11-19] VITALS: Ht 152.4 cm; Wt 64.0 kg
[~2020-11-19 15:24] MED LIST changes: +CEPH500C PO; +FLUC150T PO; +LORA0.5T96 PO
[2020-11-19] MEDS ORDERED: ONDANSETRON PF 4 MG/2 ML VIAL. IVP ONE (15:45)
[2020-11-19] MEDS ORDERED: IV NORMAL SALINE 1000ML BAG 1,000 ML IV SCH (15:45)
[2020-11-19] MEDS ORDERED: LIDO:MAALOX 1:1 20 ML SINGLE DOSE. SWSW ONE (15:45)
--- NOTE | 2020-11-19 15:59 | PHYS DOC ---
Past Medical History Past Medical History: Anxiety, Depression, UTI Additional Past Medical Histor: BV, Yeast infection Past Surgical History: , Other Additional Past Surgical Histo: BREAST IMPLANTS Smoking Status: Never Smoker Alcohol Use: None General Adult EDM: Chief Complaint: SORE THROAT HPI: HPI: Patient is a 40 year old Female who presents with burning sensation to the tongue, throat, all the way down into the stomach. Is been going on since November 17 which was 2 days ago when she was here but was only diagnosed with an xiety and patient states that the burning sensation was not addressed. When patient eats she vomits. She states she has been trying to get down some soups and has been trying to stay away from anything spicy. Patient states after her November 17 visit she went to primary care doctor of which she cannot remember the name and was given Zoloft and trazodone. She states she is still very anxious. On November 10 patient was here for urinary tract infection of which she is on Keflex. When patient was here on November 17 and she also was given nystatin mouth swish and swallow. Family states that her ears are also hurting by laterally. Patient is rating her discomfort at an 8 out of 10. Patient is very anxious. Patient states she is been taking all medications as prescribed. Patient has a history of depression, anxiety, yeast infection, BV, breast implants, , UTI. Review of Systems: Review of Systems: Constitutional: Denies fever. + chills. [] Eyes: Denies change in visual acuity. [] HENT: Denies nasal congestion. + sore throat. [] Respiratory: Denies cough or shortness of breath. [] Cardiovascular: Denies chest pain or edema. [] GI: +Burning abdominal pain, +nausea, +vomiting, denies bloody stools or diarrhea. [] : Denies dysuria. [] Musculoskeletal: Denies back pain or joint pain. +Bilateral upper arm tingling or burning sensation. [] Integument: Denies rash. [] Neurologic: Denies headache, focal weakness or sensory changes. [] Endocrine: Denies polyuria or polydipsia. [] Lymphatic: Denies swollen glands. [] Psychiatric: Denies depression. + anxiety. [] Heart Score: Risk Factors: Risk Factors: DM, Current or recent (<one month) smoker, HTN, HLP, family history of CAD, obesity. Risk Scores: Score 0 - 3: 2.5% MACE over next 6 weeks - Discharge Home Score 4 - 6: 20.3% MACE over next 6 weeks - Admit for Clinical Observation Score 7 - 10: 72.7% MACE over next 6 weeks - Early Invasive Strategies Current Medications: Current Medications Medications (Trade) Dose Ordered Sig/Frida Start Time Stop Time Status Last Admin Dose Admin Multi-Ingredient Mouthwash/Gargle (Gi Cocktail) 20 ml 1X ONCE 11/19/20 15:45 11/19/20 15:47 DC Ondansetron HCl (Zofran) 4 mg 1X ONCE 11/19/20 15:45 11/19/20 15:47 DC Sodium Chloride 1,000 ml @ 1,000 mls/hr Q1H 11/19/20 15:45 11/19/20 16:44 Allergies: Allergies: Allergies Coded Allergies Type Severity Reaction Last Updated Verified No Known Drug Allergies 07/13/20 No Physical Exam: PE: Constitutional: Well developed, well nourished, no acute distress, non-toxic appearance. [] HENT: Normocephalic, atraumatic, bilateral external ears normal, oropharynx moist, no oral exudates, nose normal. [] Eyes: PERRLA, EOMI, conjunctiva normal, no discharge. [] Neck: Normal range of motion, no tenderness, supple, no stridor. [] Cardiovascular:Heart rate regular rhythm, no murmur [] Lungs & Thorax: Bilateral breath sounds clear to auscultation [] Abdomen: Bowel sounds normal, soft, no tenderness, no masses, no pulsatile masses. [] Skin: Warm, dry, no erythema, no rash. [] Back: No tenderness, no CVA tenderness. [] Extremities: No tenderness, no cyanosis, no clubbing, ROM intact, no edema. [] Neurologic: Alert and oriented X 3, normal motor function, normal sensory function, no focal deficits noted. [] Psychologic: Affect normal, judgement normal, mood normal. Anxious[] EKG: EKG: [] Radiology/Procedures: Radiology/Procedures: [] Impression: [facility] [address] [place] [address] IMAGING REPORT Signed PATIENT: MAURICIO SMITH ACCOUNT: [id number] : 1980 LOCATION: ER AGE: 40 SEX: F EXAM STATUS: REG ER ORD. PHYSICIAN: SRINATH ELIAS APRN REASON: severe pain in abd and esophagus, vomiting PROCEDURE: CT ABD PELV W/ IV CONTRST ONLY EXAM: CT Abdomen and Pelvis with IV contrast CLINICAL HISTORY: severe pain in abd and esophagus, vomiting COMPARISON: 07/27/2020 TECHNIQUE: Helical CT of the abdomen and pelvis was performed following the administration of intravenous contrast. Axial, coronal and sagittal reformatted images were generated. PQRS compliance statement - One or more of the following individualized dose reduction techniques were utilized for this study: 1. Automated exposure control 2. Adjustment of the mA and/or kV according to patient size 3. Use of iterative reconstruction technique FINDINGS: Lower Chest: Lung bases are clear. Bilateral breast implants are partially profiled. Abdomen and Pelvis: No focal liver lesion. Gallbladder is normal. No biliary duct dilatation. Pancreas is unremarkable. Spleen is normal in appearance. Adrenal glands are unremarkable. Symmetric nephrograms. No focal renal lesion. No hydronephrosis. No hydroureter. Bladder is unremarkable. No abdominal or pelvic lymphadenopathy. No abdominal or pelvic ascites. Trace fat-containing periumbilical hernia. Moderate colonic stool content is seen. Appendix is normal. No small or large bowel dilatation. No bowel obstruction. Aorta is normal in caliber. Bones: No aggressive osseous lesion is seen. IMPRESSION: 1. No bowel obstruction. 2. Gallbladder the pancreas are normal in appearance. Electronically signed by: Gonzalo Hassan MD (11/19/2020 5:14 PM) [facility] DICTATED and SIGNED BY: GONZALO HASSAN MD DATE: 11/19/20 [id number] 0 Course & Med Decision Making: Course & Med Decision Making Pertinent Labs and Imaging studies reviewed. (See chart for details) See HPI. Throat is pink without exudates. No yeast of the mouth is seen and there is no yeast in the tongue. Oral mucosa is normal and there is no sores. Abdomen is soft and nontender. Afebrile. She states she is been having the chills but no fever. She states the vomiting started this past Saturday. Bilateral tympanic's are pearly white. See HPI. Patient states she also has a burning sensation or tingling in her bilateral upper arms. She states that this burning has only gotten worse since last time she was here. Patient is educated that the Zoloft or any anxiety or depression medication takes 4 weeks at least to get into the system and start to work. Patient is given a GI cocktail in the ED. I will do some blood work to make sure her electrolytes and is hemodynamically stable. I will also recheck her urine. She is alert and oriented x4. Ambulatory with a steady gait. Speaks in full complete sentences. Blood work unremarkable. Urine looks slightly better than the urine 2 days ago. She will continue taking Keflex at home. The microbiology did not show anything that was indicative of infection for the urine. Patient was given Rocephin through her IV here. CT abdomen pelvis shows no acute findings. The GI cocktail did help. Patient is still complaining of bilateral upper arm burning tingling sensation that goes through her upper back. Patient needs follow-up with her primary care provider. I will give her a dose of dexamethasone here to see if that helps with the arm and upper back tingling burning sensation as this sounds more nerve pain. [] Dragon Disclaimer: Dragon Disclaimer: This electronic medical record was generated, in whole or in part, using a voice recognition dictation system. Departure Departure Impression: Primary Impression: Abdominal pain Qualified Codes: R10.13 - Epigastric pain Additional Impressions: Anxiety attack Tingling in extremities Disposition: 01 DC HOME SELF CARE/HOMELESS Condition: STABLE Referrals: LAILA LYNN-HERON (PCP) LEONID MOREJON MD Patient Instructions: Anxiety and Panic Attacks, [id number], Diet for Gastroesophageal Reflux Disease, Adult, Gastroesophageal Reflux Disease, Adult, Sertraline tablets Additional Instructions: Follow-up with your primary care doctor soon as possible. Continue taking all medications. Take your medications with food. Scripts Sucralfate (CARAFATE) 1 Gm/10 Ml Oral.susp 10 ML PO QID for 14 Days, #560 ML 0 Refills before food Prov: SRINATH ELIAS APRN 11/19/20 Famotidine (PEPCID) 20 Mg Tablet 20 MG PO BID for 20 Days, #40 TAB Prov: SRINATH ELIAS APRN 11/19/20 SRINATH ELIAS APRN Nov 19, 2020 15:58
[2020-11-19 16:16] LABS: BILIRUBIN,URINE NEGATIVE (NEG); CLARITY,URINE CLEAR; COLOR,URINE YELLOW; NITRITE,URINE NEGATIVE (NEG); PROTEIN,URINE NEGATIVE (NEG-TRACE); UROBILINOGEN,URINE 0.2 mg/dL (0.2 mg/dL)
[2020-11-19 16:18] LABS: BASO # 0.1 x10^3/uL (0.0-0.2); BASO % 1 % (0-3); EOS % 0 % (0-3); HEMATOCRIT 36.9 % (36.0-47.0); HEMOGLOBIN 12.7 g/dL (12.0-15.5); LYMPH # 1.7 x10^3/uL (1.0-4.8); LYMPH % 19 % (24-48); MEAN CORPUSCULAR HEMOGLOBIN 33 pg (25-35); MEAN CORPUSCULAR HGB CONC 35 g/dL (31-37); MEAN CORPUSCULAR VOLUME 96 fL (79-100); MONO # 0.5 x10^3/uL (0.0-1.1); MONO % 6 % (0-9); NEUT # 6.4 x10^3/uL (1.8-7.7); NEUT % 74 % (31-73); PLATELET COUNT 381 x10^3/uL (140-400); RED BLOOD COUNT 3.83 x10^6/uL (3.50-5.40); RED CELL DISTRIBUTION WIDTH 12.6 % (11.5-14.5); WHITE BLOOD COUNT 8.6 x10^3/uL (4.0-11.0)
[2020-11-19] MEDS ORDERED: IOHEXOL 300 MG/ML 100ML VIAL. IV ONE (16:30)
[2020-11-19] MEDS ORDERED: CONTRAST GIVEN. MC PRN (16:45)
[2020-11-19 16:50] LABS: CALCIUM 9.1 mg/dL (8.5-10.1); CREATININE 0.7 mg/dL (0.6-1.0); GFR 92.7; POTASSIUM 3.7 mmol/L (3.5-5.1)
[2020-11-19 16:56] LABS: ALBUMIN 3.7 g/dL (3.4-5.0); ALBUMIN/GLOBULIN RATIO 0.9 (1.0-1.7); TOTAL BILIRUBIN 0.2 mg/dL (0.2-1.0)
[2020-11-19 16:56] LABS: BACTERIA,URINE MODERATE /HPF (0-FEW)
[2020-11-19] MEDS ORDERED: cefTRIAXone IV Push 1 GM VIAL. IVP ONE (17:15)
--- NOTE | 2020-11-19 17:17 | RAD ---
EXAM: CT Abdomen and Pelvis with IV contrast CLINICAL HISTORY: severe pain in abd and esophagus, vomiting COMPARISON: 07/27/2020 TECHNIQUE: Helical CT of the abdomen and pelvis was performed following the administration of intrave nous contrast. Axial, coronal and sagittal reformatted images were generated. PQRS compliance statement - One or more of the following individualized dose reduction techniques wer e utilized for this study: 1. Automated exposure control 2. Adjustment of the mA and/or kV according to patient size 3. Use of iterative reconstruction technique FINDINGS: Lower Chest: Lung bases are clear. Bilateral breast implants are partially profiled. Abdomen and Pelvis: No focal liver lesion. Gallbladder is normal. No biliary duct dilatation. Pancreas is unremarkable. S pleen is normal in appearance. Adrenal glands are unremarkable. Symmetric nephrograms. No focal renal lesion. No hydronephrosis. No hydroureter. Bladder is unremarka ble. No abdominal or pelvic lymphadenopathy. No abdominal or pelvic ascites. Trace fat-containing periumbilical hernia. Moderate colonic stool content is seen. Appendix is normal. No small or large bowel dilatation. No brittney wel obstruction. Aorta is normal in caliber. Bones: No aggressive osseous lesion is seen. IMPRESSION: 1. No bowel obstruction. 2. Gallbladder the pancreas are normal in appearance. Electronically signed by: Gonzalo De La Garza MD (11/19/2020 5:14 PM) [facility]
[2020-11-19] MEDS ORDERED: SUCR1ORA5 PO (17:50)
[2020-11-19] MEDS ORDERED: FAMO-63 PO (17:50)
[2020-11-19] MEDS ORDERED: DEXAMETHASONE SOD PHOS 20 MG/5 ML VIAL. IV ONE (18:00)
[2020-11-19] MEDS ORDERED: fentaNYL PF VIAL 100 MCG/2 ML VIAL IVP ONE (18:00)
[2020-11-19 19:12] VITALS: BP 118/62
== END 2020-11-19 19:12 | disposition home or self-care (01) ==
LOC: ER 15:24
DX: R10.13 Epigastric pain (principal); F41.9 Anxiety disorder, unspecified; R20.2 Paresthesia of skin; F32.9 Major depressive disorder, single episode, unspecified; Z98.890 Other specified postprocedural states
CPT/HCPCS: 36415; 74177; 80053; 81001; 81025; 83690; 84484; 85025; 87086; 96361; 96374; 96375; 99285; J0696; J1100; J2405; J3010; J7030; Q9967

== ENCOUNTER 2020-11-21 21:37 | Emergency (ER) | payer BC ==
[~2020-11-21] VITALS: Ht 152.4 cm; Wt 64.0 kg
[~2020-11-21 21:37] MED LIST changes: +SUCR1ORA5 PO
[2020-11-21 22:36] LABS: BILIRUBIN,URINE NEGATIVE (NEG); CLARITY,URINE CLEAR; NITRITE,URINE NEGATIVE (NEG); PROTEIN,URINE NEGATIVE (NEG-TRACE); UROBILINOGEN,URINE 0.2 mg/dL (0.2 mg/dL)
[2020-11-21 22:44] LABS: COLOR,URINE STRAW
[2020-11-21 22:46] LABS: BACTERIA,URINE FEW /HPF (0-FEW); RBC,URINE RARE /HPF (0-2); WBC,URINE 0 /HPF (0-4)
[2020-11-21 23:16] LABS: U PREG PATIENT NEGATIVE (NEG)
[2020-11-21] MEDS ORDERED: VALA500T9 PO (23:49)
--- NOTE | 2020-11-21 23:50 | PHYS DOC ---
Past Medical History Past Medical History: Anxiety, Depression, UTI Additional Past Medical Histor: BV, Yeast infection Past Surgical History: , Other Additional Past Surgical Histo: BREAST IMPLANTS Smoking Status: Never Smoker Alcohol Use: None Adult General Chief Complaint Chief Complaint: VAGINAL PROBLEM HPI HPI Patient is a 40 year old F with no confirmed past medical history presenting to the emergency department now complaining of new onset of vaginal and anal pain. Patient states that her last 24 hours she developed worsening sensation of irritation, inflammation soreness to the genital region. Patient states that he has had this problem for approximately 3 months with intermittent burning pain. Patient states that she has been placed on a cream by her primary care physician for possible herpes outbreak but does not feel this is helping. Of note the patient has been here 3 times a last week with varying complaints. States that she feels that this has been getting better but now having worsening general pain. Patient is also separately noting that she has been having intermittent episodes of rectal bleeding. Patient states that often when she does have a bowel movement she notes blood in the stool. States that this has been occurring for many years but feels that it is worse. Also states that she is having the same pain around her anus. Denies any new sexual contacts. Denies any fever, chills, chest pain or shortness of breath. Does complain of mild suprapubic abdominal pain. Review of Systems Review of Systems Constitutional: Denies fever or chills [] Eyes: Denies change in visual acuity, redness, or eye pain [] HENT: Denies nasal congestion or sore throat [] Respiratory: Denies cough or shortness of breath [] Cardiovascular: No additional information not addressed in HPI [] GI: Denies abdominal pain, nausea, vomiting, bloody stools or diarrhea [] : Denies dysuria or hematuria [] Musculoskeletal: Denies back pain or joint pain [] Integument: Denies rash or skin lesions [] Neurologic: Denies headache, focal weakness or sensory changes [] Endocrine: Denies polyuria or polydipsia [] All other systems were reviewed and found to be within normal limits, except as documented in this note. Allergies Allergies Allergies Coded Allergies Type Severity Reaction Last Updated Verified No Known Drug Allergies 07/13/20 No Physical Exam Physical Exam Constitutional: Well developed, well nourished, no acute distress, non-toxic appearance. [] HENT: Normocephalic, atraumatic, bilateral external ears normal, oropharynx moist, no oral exudates, nose normal. [] Eyes: PERRLA, EOMI, conjunctiva normal, no discharge. [] Neck: Normal range of motion, no tenderness, supple, no stridor. [] Cardiovascular:Heart rate regular rhythm, no murmur [] Lungs & Thorax: Bilateral breath sounds clear to auscultation [] Abdomen: Bowel sounds normal, soft, no tenderness, no masses, no pulsatile masses. [] Skin: Warm, dry, no erythema, no rash. [] Back: No tenderness, no CVA tenderness. [] Genital: chaperoned by SEAMUS Quevedo, pt noted to have mild tenerness at extenral vulvular reiong and inferior border without clear lesion. Anal exam with signficiant erythema and excoriation Extremities: No tenderness, no cyanosis, no clubbing, ROM intact, no edema. [] Neurologic: Alert and oriented X 3, normal motor function, normal sensory function, no focal deficits noted. [] Psychologic: Affect normal, judgement normal, mood normal. [] Current Patient Data Lab Values Laboratory Tests Test 11/21/20 22:05 Urine Collection Type Unknown Urine Color Straw Urine Clarity Clear Urine pH 7.0 (<5.0-8.0) Urine Specific [place] <=1.005 (1.000-1.030) Urine Protein Negative mg/dL (NEG-TRACE) Urine Glucose (UA) Negative mg/dL (NEG) Urine Ketones (Stick) Negative mg/dL (NEG) Urine Blood Trace (NEG) Urine Nitrite Negative (NEG) Urine Bilirubin Negative (NEG) Urine Urobilinogen Dipstick 0.2 mg/dL (0.2 mg/dL) Urine Leukocyte Esterase Negative (NEG) Urine RBC Rare /HPF (0-2) Urine WBC 0 /HPF (0-4) Urine Squamous Epithelial Cells Many /LPF Urine Bacteria Few /HPF (0-FEW) Urine Test Negative (NEG) EKG EKG [] Radiology/Procedures Radiology/Procedures [] Course & Med Decision Making Course & Med Decision Making Pertinent Labs and Imaging studies reviewed. (See chart for details) 40F with nonspecific genital and anal pain that is most consistent with acute herpetic outbreak. Given the patient's complaint of suprapubic abdominal pain will also obtain GC chlamydia to ensure there is no evidence of cervicitis but as the patient is not having any abnormal discharge or failure this is unlikely. Patient does state that she has been having chronic sensation of urinary tract infection which could also be interstitial cystitis. We will treat the patient symptomatically for her pain, provide a course of acyclovir for herpes outbreak and recommend to APARTMENT HOTEL MANAGER. Librado Disclaimer Dragon Disclaimer This electronic medical record was generated, in whole or in part, using a voice recognition dictation system. Departure Departure Impression: Primary Impression: Genital herpes Disposition: 01 DC HOME SELF CARE/HOMELESS Condition: GOOD Referrals: JOSE SÁNCHEZ Jr, MD Patient Instructions: Genital Herpes, Interstitial Cystitis Additional Instructions: EMERGENCY DEPARTMENT GENERAL DISCHARGE INSTRUCTIONS Thank you for coming to [facility] Emergency Department (ED) today and trusting us with you care. We trust that you had a positive experience in our Emergency Department. If you wish to speak to the department management, you may call the Director at [phone]. YOUR FOLLOW UP INSTRUCTIONS ARE FOLLOWS: 1. Do you have a private Doctor? If you do not have a private doctor, please ask for a resource list of physicians or clinics that may be able to assist you with follow up care. 2. The Emergency Physicain has interpreted your x-rays. The X-Ray specialist will also review them. If there is a change in the findings, you will be notified in 48 hours when at all possible. 3. A lab test or culture has been done, your results will be reviewed and you will be notified if you need a change in treatment. ADDITIONAL INSTRUCTIONS AND INFORMATION: 1. Your care today has been supervised by a physician who is specially trained in emergency care. Many problems require more than one evaluation for a complete diagnosis and treatment. We recommend that you schedule your follow up appointment as recommended to ensure complete treatment of you illness or injury. If you are unable to obtain follow up care and continue to have a problem, or if your condition worsens, we recommend that you return to the ED. 2. We are not able to safely determine your condition over the phone nor are we able to give sound medical advice over the phone. For these safety reasons, if you call for medical advice we will ask you to come to the ED for further evaluation. 3. If you have any questions regarding these discharge instructions please call the ED at [phone]. SAFETY INFORMATION: In the interest of safety, wellness, and injury prevention; we encourage you to wear your sealbelt, if you smoke; quite smoking, and we encourage family to use a protective helmet for bicycling and other sporting events that present an increased risk for head injury. IF YOUR SYMPTOMS WORSEN OR NEW SYMPTOMS DEVELOP, OR YOU HAVE CONCERNS ABOUT YOUR CONDITION; OR IF YOUR CONDITION WORSENS WHILE YOU ARE WAITING FOR YOUR FOLLOW UP APPOINTMENT; EITHER CONTACT YOUR PRIMARY CARE DOCTOR, THE PHYSICIAN WHOSE NAME AND NUMBER YOU WERE GIVEN, OR RETURN TO THE ED IMMEDIATELY. RJ BOLAÑOS MD Nov 21, 2020 23:50
[2020-11-22 00:48] VITALS: BP 126/59
[2020-11-24 01:11] LABS: GC PROBE Negative (Negative)
== END 2020-11-22 00:53 | disposition home or self-care (01) ==
LOC: ER 21:37
DX: B00.9 Herpesviral infection, unspecified (principal); Z87.440 Personal history of urinary (tract) infections
CPT/HCPCS: 81001; 81025; 87491; 87591; 99283

== ENCOUNTER 2020-11-24 01:23 | Emergency (ER) | payer BC ==
[~2020-11-24] VITALS: Ht 152.4 cm; Wt 64.0 kg
[~2020-11-24 01:23] MED LIST changes: +VALA500T9 PO
--- NOTE | 2020-11-24 02:17 | EKG ---
[facility] [address] [place] [address] Test Date: 2020-11-24 Test Time: 01:45:44 Pat Name: MAURICIO SMITH Department: Room: Gender: F Equine Breeder: : 1980 Requested By: SHERRI RODRIGUEZ Order Number: [id number] Reading MD: Moises Aranda Measurements Intervals [place] Rate: 54 P: 30 MS: 126 QRS: 67 QRSD: 86 T: 36 QT: 432 QTc: 411 Interpretive Statements SINUS RHYTHM Electronically Signed On 12-04-2020 14:46:10 JIG FITTER by Moises Aranda
[2020-11-24 02:45] LABS: BASO % 0 % (0-3); EOS # 0.1 x10^3/uL (0.0-0.7); EOS % 1 % (0-3); HEMATOCRIT 35.5 % (36.0-47.0); HEMOGLOBIN 12.4 g/dL (12.0-15.5); LYMPH # 1.8 x10^3/uL (1.0-4.8); LYMPH % 19 % (24-48); MEAN CORPUSCULAR HEMOGLOBIN 34 pg (25-35); MEAN CORPUSCULAR HGB CONC 35 g/dL (31-37); MEAN CORPUSCULAR VOLUME 96 fL (79-100); MONO # 0.6 x10^3/uL (0.0-1.1); MONO % 6 % (0-9); NEUT # 6.8 x10^3/uL (1.8-7.7); NEUT % 73 % (31-73); PLATELET COUNT 355 x10^3/uL (140-400); RED BLOOD COUNT 3.69 x10^6/uL (3.50-5.40); WHITE BLOOD COUNT 9.3 x10^3/uL (4.0-11.0)
[2020-11-24 02:58] LABS: CALCIUM 8.9 mg/dL (8.5-10.1); CREATININE 0.7 mg/dL (0.6-1.0); GFR 92.7; POTASSIUM 3.6 mmol/L (3.5-5.1)
[2020-11-24 03:04] LABS: ALBUMIN 3.4 g/dL (3.4-5.0); ALBUMIN/GLOBULIN RATIO 0.9 (1.0-1.7); MAGNESIUM 2.1 mg/dL (1.8-2.4); TOTAL BILIRUBIN 0.3 mg/dL (0.2-1.0); TOTAL PROTEIN 7.4 g/dL (6.4-8.2)
[2020-11-24] MEDS ORDERED: IV NORMAL SALINE 1000ML BAG 1,000 ML IV ONE (03:30)
[2020-11-24] MEDS ORDERED: IOHEXOL 350 MG/ML 100 ML VIAL. IV ONE (05:00)
[2020-11-24] MEDS ORDERED: CONTRAST GIVEN. MC PRN (05:00)
[2020-11-24 05:05] LABS: BILIRUBIN,URINE NEGATIVE (NEG); CLARITY,URINE CLEAR; COLOR,URINE YELLOW; NITRITE,URINE NEGATIVE (NEG); PH,URINE 6.5 (<5.0-8.0); PROTEIN,URINE NEGATIVE (NEG-TRACE); UROBILINOGEN,URINE 0.2 mg/dL (0.2 mg/dL)
[2020-11-24 05:16] LABS: BACTERIA,URINE FEW /HPF (0-FEW); RBC,URINE 0 /HPF (0-2)
--- NOTE | 2020-11-24 05:16 | RAD ---
PQRS Compliance Statement: One or more of the following individualized dose reduction techniques were utilized for this examinat ion: 1. Automated exposure control 2. Adjustment of the mA and/or kV according to patient size 3. Use of iterative reconstruction technique CT CHEST WITH CONTRAST, PULMONARY ANGIOGRAM History: Bradycardia,: pe, syncope, Comparison: None. Technique: Helical CT of the chest was performed after the administration of 100 cc of Omnipaque 350 intravenous contrast according to PE protocol. Axial and coronal reconstructions were obtained. 3- D MIP images were constructed to better evaluate the pulmonary arteries. Findings: Pulmonary arteries are adequately opacified. There is no evidence of pulmonary embolism. There is no thoracic aortic dissection. Great vessels are normal caliber. The hepatic and splenic art eries arise separately from the abdominal aorta. There are bilateral breast implants. The thyroid is symmetric. There is no adenopathy in the chest. Cardiac size is normal, no pericardial effusion. There is no pleural abnormality. The central airways are patent. The lungs are clear. Respiratory mot ion artifact. Visualized upper abdomen is unremarkable. There is no acute bone abnormality. IMPRESSION: There is no pulmonary embolus. Electronically signed by: Mark Elliott MD (11/24/2020 5:14 AM) [facility]
[2020-11-24 05:21] LABS: BARBITURATES NEG (NEG); BENZODIAZEPINES NEG (NEG); CANNABINOIDS NEG (NEG); COCAINE NEG (NEG); METHADONE NEG (NEG); OPIATES NEG (NEG); PHENCYCLIDINE NEG (NEG)
[2020-11-24 05:22] LABS: AMPHETAMINE/METHAMPHETAMINE NEG (NEG)
--- NOTE | 2020-11-24 06:00 | ED.ADGEN ---
Past Medical History Past Medical History: Anxiety, Depression Additional Past Medical Histor: BV, Yeast infection Past Surgical History: , Tubal ligation, Other Additional Past Surgical Histo: breast augmentation Smoking Status: Never Smoker Alcohol Use: None General Adult EDM: Chief Complaint: SYNCOPE HPI: HPI: Patient is a 40-year-old female coming in [facility] after a syncopal episode. Patient states she was sitting on the couch with other people got up to use the restroom. Patient states after she urinated and was leaning forward she felt lightheaded with tunnel vision and passed out. Patient still complaining of lightheadedness. States she did not hit her head and denies any pain in her chest or head. Denies any palpitations nausea or vomiting. Patient started on multiple psychiatric medications depression. No personal cardiac history or history of sudden in family members. Review of Systems: Review of Systems: All other systems within normal limits except for as noted in the HPI Current Medications: Current Medications Medications (Trade) Dose Ordered Sig/Frida Start Time Stop Time Status Last Admin Dose Admin Info (CONTRAST GIVEN -- Rx MONITORING) 1 each PRN DAILY PRN 11/24/20 05:00 11/26/20 04:59 Iohexol (Omnipaque 350 Mg/ml) 100 ml 1X ONCE 11/24/20 05:00 11/24/20 05:01 DC 11/24/20 05:05 100 ML Sodium Chloride 1,000 ml @ 1,000 mls/hr 1X ONCE 11/24/20 03:30 11/24/20 04:29 DC 11/24/20 04:00 1,000 MLS/HR Allergies: Allergies: Allergies Coded Allergies Type Severity Reaction Last Updated Verified No Known Drug Allergies 07/13/20 No Physical Exam: PE: Constitutional: Well developed, well nourished, no acute distress, non-toxic appearance. [] HENT: Normocephalic, atraumatic, bilateral external ears normal, nose normal. [] Eyes: PERRLA, conjunctiva normal, no discharge. [] Neck: No rigidity, supple, no stridor. [] Cardiovascular: Regular rate and rhythm, brisk cap refill [] Lungs & Thorax: Non labored symmetric respirations, no tachypnea or respiratory distress [] Abdomen: Soft, nondistended. Skin: Warm, dry, no erythema, no rash. [] Back: Unremarkable Extremities: No deformities, range of motion grossly intact, no lower extremity edema [] Neurologic: Alert and oriented X 3, no focal deficits noted. [] Psychologic: Affect normal, judgement normal, mood normal. [] Current Patient Data: Labs: Laboratory Tests Test 11/24/20 02:11 11/24/20 04:46 White Blood Count 9.3 x10^3/uL (4.0-11.0) Red Blood Count 3.69 x10^6/uL (3.50-5.40) Hemoglobin 12.4 g/dL (12.0-15.5) Hematocrit 35.5 % (36.0-47.0) L Mean Corpuscular Volume 96 fL (79-100) Mean Corpuscular Hemoglobin 34 pg (25-35) Mean Corpuscular Hemoglobin Concent 35 g/dL (31-37) Red Cell Distribution Width 13.0 % (11.5-14.5) Platelet Count 355 x10^3/uL (140-400) Neutrophils (%) (Auto) 73 % (31-73) Lymphocytes (%) (Auto) 19 % (24-48) L Monocytes (%) (Auto) 6 % (0-9) Eosinophils (%) (Auto) 1 % (0-3) Basophils (%) (Auto) 0 % (0-3) Neutrophils # (Auto) 6.8 x10^3/uL (1.8-7.7) Lymphocytes # (Auto) 1.8 x10^3/uL (1.0-4.8) Monocytes # (Auto) 0.6 x10^3/uL (0.0-1.1) Eosinophils # (Auto) 0.1 x10^3/uL (0.0-0.7) Basophils # (Auto) 0.0 x10^3/uL (0.0-0.2) D-Dimer (Deepti) 2.43 ug/mlFEU (0.00-0.50) H Sodium Level 137 mmol/L (136-145) Potassium Level 3.6 mmol/L (3.5-5.1) Chloride Level 103 mmol/L (98-107) Carbon Dioxide Level 25 mmol/L (21-32) Anion Gap 9 (6-14) Blood Urea Nitrogen 8 mg/dL (7-20) Creatinine 0.7 mg/dL (0.6-1.0) Estimated GFR (Cockcroft-Gault) 92.7 BUN/Creatinine Ratio 11 (6-20) Glucose Level 106 mg/dL (70-99) H Lactic Acid Level 1.0 mmol/L (0.4-2.0) Calcium Level 8.9 mg/dL (8.5-10.1) Magnesium Level 2.1 mg/dL (1.8-2.4) Total Bilirubin 0.3 mg/dL (0.2-1.0) Aspartate Amino Transferase (AST) 18 U/L (15-37) Alanine Aminotransferase (ALT) 49 U/L (14-59) Alkaline Phosphatase 44 U/L (46-116) L Troponin I Quantitative < 0.017 ng/mL (0.000-0.055) GU-Sru-R-Type Natriuretic Peptide 26 pg/mL (0-124) Total Protein 7.4 g/dL (6.4-8.2) Albumin 3.4 g/dL (3.4-5.0) Albumin/Globulin Ratio 0.9 (1.0-1.7) L Ethyl Alcohol Level < 10 mg/dL (0-10) Urine Collection Type Unknown Urine Color Yellow Urine Clarity Clear Urine pH 6.5 (<5.0-8.0) Urine Specific [place] 1.010 (1.000-1.030) Urine Protein Negative mg/dL (NEG-TRACE) Urine Glucose (UA) Negative mg/dL (NEG) Urine Ketones (Stick) Negative mg/dL (NEG) Urine Blood Trace (NEG) Urine Nitrite Negative (NEG) Urine Bilirubin Negative (NEG) Urine Urobilinogen Dipstick 0.2 mg/dL (0.2 mg/dL) Urine Leukocyte Esterase Negative (NEG) Urine RBC 0 /HPF (0-2) Urine WBC 1-4 /HPF (0-4) Urine Squamous Epithelial Cells Many /LPF Urine Bacteria Few /HPF (0-FEW) Urine Mucus Slight /LPF Urine Opiates Screen Neg (NEG) Urine Methadone Screen Neg (NEG) Urine Barbiturates Neg (NEG) Urine Phencyclidine Screen Neg (NEG) Urine Amphetamine/Methamphetamine Neg (NEG) Urine Benzodiazepines Screen Neg (NEG) Urine Cocaine Screen Neg (NEG) Urine Cannabinoids Screen Neg (NEG) Urine Ethyl Alcohol Neg (NEG) Laboratory Tests 11/24/20 02:11 Laboratory Tests 11/24/20 02:11 Vital Signs: Vital Signs Date Time Temp Pulse Resp B/P (MAP) Pulse Ox O2 Delivery O2 Flow Rate FiO2 11/24/20 01:40 98.8 56 20 97/49 (65) 98 Room Air 98.8 EKG: EKG: Sinus rhythm, normal axis, no ST elevation or depression, no ectopy [] Heart Score: Risk Factors: Risk Factors: DM, Current or recent (<one month) smoker, HTN, HLP, family history of CAD, obesity. Risk Scores: Score 0 - 3: 2.5% MACE over next 6 weeks - Discharge Home Score 4 - 6: 20.3% MACE over next 6 weeks - Admit for Clinical Observation Score 7 - 10: 72.7% MACE over next 6 weeks - Early Invasive Strategies Radiology/Procedures: Radiology/Procedures: CT CHEST WITH CONTRAST, PULMONARY ANGIOGRAM History: Bradycardia,: pe, syncope, Comparison: None. Technique: Helical CT of the chest was performed after the administration of 100 cc of Omnipaque 350 intravenous contrast according to PE protocol. Axial and coronal reconstructions were obtained. 3-D MIP images were constructed to better evaluate the pulmonary arteries. Findings: Pulmonary arteries are adequately opacified. There is no evidence of pulmonary embolism. There is no thoracic aortic dissection. Great vessels are normal caliber. The hepatic and splenic arteries arise separately from the abdominal aorta. There are bilateral breast implants. The thyroid is symmetric. There is no adenopathy in the chest. Cardiac size is normal, no pericardial effusion. There is no pleural abnormality. The central airways are patent. The lungs are clear. Respiratory motion artifact. Visualized upper abdomen is unremarkable. There is no acute bone abnormality. IMPRESSION: There is no pulmonary embolus.[] Course & Med Decision Making: Course & Med Decision Making Pertinent Labs and Imaging studies reviewed. (See chart for details) [] Dragon Disclaimer: Dragon Disclaimer: This electronic medical record was generated, in whole or in part, using a voice recognition dictation system. Departure Departure Impression: Primary Impression: Syncope Disposition: 01 DC HOME SELF CARE/HOMELESS Condition: STABLE Referrals: LAILA LYNN (PCP) Patient Instructions: Syncope, [id number] SHERRI RODRIGUEZ MD Nov 24, 2020 05:59
[2020-11-24 06:40] VITALS: BP 91/53
== END 2020-11-24 07:00 | disposition home or self-care (01) ==
LOC: ER 01:23
DX: R55 Syncope and collapse (principal); R42 Dizziness and giddiness; H53.489 Generalized contraction of visual field, unspecified eye; F41.9 Anxiety disorder, unspecified; F32.9 Major depressive disorder, single episode, unspecified; Z98.51 Tubal ligation status; Z98.890 Other specified postprocedural states
CPT/HCPCS: 36415; 71275; 80053; 80307; 81001; 83605; 83735; 83880; 84484; 85025; 85379; 93005; 96360; 99285; G0480; J7030; Q9967

== ENCOUNTER 2020-11-28 16:17 | Emergency (ER) | payer BC ==
[~2020-11-28] VITALS: Ht 152.4 cm; Wt 64.0 kg
--- NOTE | 2020-11-28 18:19 | PHYS DOC ---
Past Medical History Past Medical History: Anxiety, Depression Additional Past Medical Histor: BV, Yeast infection Past Surgical History: , Tubal ligation, Other Additional Past Surgical Histo: breast augmentation Smoking Status: Never Smoker Alcohol Use: None General Adult EDM: Chief Complaint: ANXIETY/PANIC ATTACK HPI: HPI: Patient is a 40 year old female with history of anxiety, depression, presenting to the ED today with her who is interpreting for Maltese. Patient appears to be in an anxiety attack, she is crying asking for help. states patient has had this anxiety attacks for months. He states patient was started on Zoloft, Ambien and trazodone 3 weeks ago with no improvement. Patient denies any suicidal homicidal ideations. Denies any suicidal or homic idal ideations. Review of Systems: Review of Systems: Constitutional: Denies fever or chills. [] Eyes: Denies change in visual acuity. [] HENT: Denies nasal congestion or sore throat. [] Respiratory: Denies cough or shortness of breath. [] Cardiovascular: Denies chest pain or edema. [] GI: Denies abdominal pain, nausea, vomiting, bloody stools or diarrhea. [] : Denies dysuria. [] Musculoskeletal: Denies back pain or joint pain. [] Integument: Denies rash. [] Neurologic: Denies headache, focal weakness or sensory changes. [] Psychiatric: Reports anxiety attack Heart Score: Risk Factors: Risk Factors: DM, Current or recent (<one month) smoker, HTN, HLP, family history of CAD, obesity. Risk Scores: Score 0 - 3: 2.5% MACE over next 6 weeks - Discharge Home Score 4 - 6: 20.3% MACE over next 6 weeks - Admit for Clinical Observation Score 7 - 10: 72.7% MACE over next 6 weeks - Early Invasive Strategies Allergies: Allergies: Allergies Coded Allergies Type Severity Reaction Last Updated Verified No Known Drug Allergies 07/13/20 No Physical Exam: PE: Constitutional: Well developed, well nourished, no acute distress, non-toxic appearance. [] HENT: Normocephalic, atraumatic, bilateral external ears normal, oropharynx moist, no oral exudates, nose normal. [] Eyes: PERRLA, EOMI, conjunctiva normal, no discharge. [] Neck: Normal range of motion, no tenderness, supple, no stridor. [] Cardiovascular:Heart rate regular rhythm, no murmur [] Lungs & Thorax: Bilateral breath sounds clear to auscultation [] Abdomen: Bowel sounds normal, soft, no tenderness, no masses, no pulsatile masses. [] Skin: Warm, dry, no erythema, no rash. [] Back: No tenderness, no CVA tenderness. [] Extremities: No tenderness, no cyanosis, no clubbing, ROM intact, no edema. [] Neurologic: Alert and oriented X 3, normal motor function, normal sensory function, no focal deficits noted. [] Psychologic: Flat affect, crying inconsolably Current Patient Data: Vital Signs: Vital Signs Date Time Temp Pulse Resp B/P (MAP) Pulse Ox O2 Delivery O2 Flow Rate FiO2 11/28/20 16:43 98.1 69 20 133/61 (85) 99 Room Air 98.1 EKG: EKG: [] Radiology/Procedures: Radiology/Procedures: [] Course & Med Decision Making: Course & Med Decision Making Pertinent Labs and Imaging studies reviewed. (See chart for details) This is a 40-year-old female patient Maltese-speaking presenting to the ED today complaining of an anxiety attack. reports this has been going on for quite some time. She was started on Zoloft, Ambien and trazadone 1 a month ago. Darvin from PAT team talked to patient and she was d/c to home with f/u to psych Librado Disclaimer: Librado Disclaimer: This electronic medical record was generated, in whole or in part, using a voice recognition dictation system. Departure Departure Impression: Primary Impression: Anxiety attack Disposition: 01 DC HOME SELF CARE/HOMELESS Condition: STABLE Referrals: LAILA LYNN-BC (PCP) follow up with Psych as discussed with Darvin. Patient Instructions: Anxiety and Panic Attacks, [id number] Additional Instructions: Please follow up with psych as recommended by CYNTHIA Jensen APRN Nov 28, 2020 18:19
[2020-11-28] MEDS ORDERED: ONDANSETRON PF 4 MG/2 ML VIAL. IV PRN (18:45)
[2020-11-28] MEDS ORDERED: ALPRAZolam 0.5 MG TABLET PO ONE (18:45)
[2020-11-28 19:18] LABS: BILIRUBIN,URINE NEGATIVE (NEG); CLARITY,URINE CLEAR; COLOR,URINE YELLOW; NITRITE,URINE NEGATIVE (NEG); PH,URINE 7.5 (<5.0-8.0); PROTEIN,URINE NEGATIVE (NEG-TRACE); UROBILINOGEN,URINE 0.2 mg/dL (0.2 mg/dL)
[2020-11-28 19:24] LABS: BARBITURATES NEG (NEG); BENZODIAZEPINES NEG (NEG); CANNABINOIDS NEG (NEG); COCAINE NEG (NEG); METHADONE NEG (NEG); OPIATES NEG (NEG); PHENCYCLIDINE NEG (NEG)
[2020-11-28 19:25] LABS: AMPHETAMINE/METHAMPHETAMINE NEG (NEG)
[2020-11-28 19:49] LABS: BACTERIA,URINE FEW /HPF (0-FEW); RBC,URINE RARE /HPF (0-2)
[2020-11-28 19:50] VITALS: BP 115/58
== END 2020-11-28 19:58 | disposition home or self-care (01) ==
LOC: ER 16:17
DX: F41.9 Anxiety disorder, unspecified (principal); F32.9 Major depressive disorder, single episode, unspecified; Z98.51 Tubal ligation status; Z98.890 Other specified postprocedural states
CPT/HCPCS: 80307; 81001; 99285